=== PATIENT | female | born 1950 | race African-American/Black ===

== ENCOUNTER 2022-11-01 08:25 | Outpatient (CLI) | payer MEDICARE, SELFPAY ==
[2022-11-01 09:00] LABS: Basophils Absolute Auto 0.1 K/mm3 (0.0-0.1); Basophils Percent Auto 1.2 % (0.2-1.2); Eosinophils Absolute Auto 0.1 K/mm3 (0-0.3); Eosinophils Percent Auto 0.7 % (0-4.4); Hematocrit 40.9 % (37.0-47.0); Hemoglobin 13.1 g/dL (12.0-15.0); Immature Granulocyte Absolute 0.02 K/mm3 (0.00-0.031); Immature Granulocyte Percent A 0.2 % (0-0.5); Immature Platelet Fraction Pct 13.9 % (0.9-11.2); Lymphocytes Absolute Auto 2.06 K/mm3 (0.9-3.2); Mean Corpuscular Hemoglobin 28.3 pg (26-34); Mean Corpuscular Volume 88.3 fl (80-100); Mean Platelet Volume 12.9 fl (7.4-10.4); Monocytes Absolute Auto 0.6 K/mm3 (0.1-0.6); Monocytes Percent Auto 7.5 % (2.6-8.5); Neutrophils Absolute Auto 5.7 K/mm3 (1.3-6.7); Neutrophils Percent Auto 66.4 % (45.5-73.1); Platelet Count Result 178 k/mm3 (150-375); Red Blood Count 4.63 M/mm3 (4.2-5.4); Red Cell Distribution Width 14.3 % (11.5-14.5); White Blood Count 8.6 K/mm3 (4.5-10.0)
[2022-11-01 09:09] LABS: Alanine Aminotransferase 19 U/L (6-35); Albumin Level 4.3 g/dL (3.5-5.1); Alkaline Phosphatase 68 U/L (38-126); Anion Gap 6 mmol/L (8-16); Aspartate Amino Transferase 24 U/L (14-36); Bilirubin,Total 0.9 mg/dL (0.2-1.3); Blood Urea Nitrogen 18 mg/dL (7-17); Calcium 9.6 mg/dL (8.4-10.2); Carbon Dioxide 31 mmol/L (22-30); Chloride 102 mmol/L (98-107); Cholesterol 229 mg/dL (0-200); Estimated Glomerular Filt Rate 54; Glucose 100 mg/dL (65-110); HDL Direct 56 mg/dL; Potassium 3.9 mmol/L (3.4-5.0); Sodium 139 mmol/L (137-145); Triglycerides 87 mg/dL (<150)
[2022-11-01 09:20] LABS: LDL Cholesterol Direct 108 mg/dL
[2022-11-01 09:59] LABS: Vitamin B12 > 1000.0 pg/mL (239-931)
[2022-11-01 10:29] LABS: Vitamin D 25 Hydroxy 36.9 ng/mL
== END 2022-11-01 08:26 | disposition home or self-care (01) ==
PROVIDERS: PCP Family Medicine; Visit Provider Family Medicine
DX: Z00.00 Encounter for general adult medical examination without abnormal findings (principal); E78.5 Hyperlipidemia, unspecified; I10 Essential (primary) hypertension; Z79.899 Other long term (current) drug therapy; E53.8 Deficiency of other specified B group vitamins; E55.9 Vitamin D deficiency, unspecified
CPT/HCPCS: 36415; 80053; 80061; 82306; 82607; 84443; 85025; 85055

== ENCOUNTER 2022-12-26 00:55 | Day surgery (SDC) | payer MEDICARE, SELFPAY ==
[2022-12-17 10:24] VITALS: BMI 31.0
--- NOTE | 2022-12-24 10:43 | SUR.PREOP ---
Patient called regarding upcoming procedure. Reviewed preop instructions, appointment times, and procedure prep.
[2022-12-26 13:18] VITALS: BP 151/84; PULSE 91; RESP 18; TEMP 36.4; O2SAT 99
[2022-12-26] MEDS: LACTATED RINGERS 1,000 ML 150 ML IV CONT (13:26)
--- NOTE | 2022-12-26 13:52 | P.PNAN_ITS ---
Anes - Initial Pre Proc Eval Procedure: Operation Date: 12/26/22 14:30 Proposed Procedures p Screening Colonoscopy - Eusebio Kepm MD Date/Time: 12/26/22 13:52 Surgeon: Eusebio Kemp MD Pre Op Diagnosis: neoplasm screening Patient Data Age: 72 Gender: F Height: 1.63 m Weight: 75.8 kg Last Vital Signs Temp 97.6 F 12/26/22 13:18 Pulse 91 12/26/22 13:18 Resp 18 12/26/22 13:18 BP 151/84 H 12/26/22 13:18 Pulse Ox 99 12/26/22 13:18 O2 Del Method Room Air 12/26/22 13:18 Allergies Allergy/AdvReac Type Severity Reaction Status Date / Time codeine Allergy Mild Nausea and Verified 12/26/22 13:15 Vomiting Home Medications Medication Instructions Recorded Confirmed Type diltiazem HCl 240 mg 240 mg PO DAILY #90 caps 10/28/22 12/17/22 Rx capsule,extended release 24 hr lisinopril 20 1 tablet PO DAILY #90 tabs 10/28/22 12/17/22 Rx mg-hydrochlorothiazide 12.5 mg tablet Patient hx anesthesia problems: none Family hx anesthesia problems: none Results Review: All pre-operative results and documents have been reviewed as part of the pre- operative evaluation. [facility] Past Medical History Medical History Essential (primary) hypertension Family History Family History Father Hypertension Mother Hypertension Sibling Hypertension Social History Social History Smoking status: Never smoker Alcohol intake: never Substance use: never Substance use type: does not use Living arrangements: alone Occupation/Education: retired Gender identity (if verbalized by the patient): Female Spiritual care concerns: No Agree to blood products: Yes Anes - Eval Final PreProcedure Day of Procedure 12/26/22 13:52 Patient weight: normal Heart: regular rate and rhythm Lungs: clear to auscultation Airway: Mallampati scale class II Neurological: alert and oriented Last oral intake: >/= 8 hours ASA classification: II Emergent: no Anesthetic plan: proceed Anesthesia type and monitoring: general GIVS and standard monitoring Results Review: All pre-operative results and documents have been reviewed as part of the pre- operative evaluation. Informed Consent: The patient's anesthetic plan and its attendant risks and benefits were discussed with the patient/family/POA. Questions were solicited and answers provided to the satisfaction of the patient/family/POA.
--- NOTE | 2022-12-26 13:55 | PM.HPGS ---
History of Present Illness History of Present Illness Consent: Risks, benefits, and alternatives have been discussed and questions answered. Patient agrees to proceed with procedure. Chief complaint: neoplasm screening Narrative: Jenny Rubio is a 72 year old female here for screening colonoscopy, last one 10 years ago Review of Systems Constitutional: Constitutional: Denies headache(s) and Denies weakness Eyes: Eyes: Denies blurry vision ENT: Reports Normal hearing present, Denies headache(s) and Denies neck pain Cardiovascular: Cardiovascular: Denies chest pain and Denies dyspnea Respiratory: Respiratory: Denies dyspnea Gastrointestinal: Gastrointestinal: Reports no additional gastrointestinal complaints Genitourinary: Genitourinary: Denies dysuria Musculoskeletal: Musculoskeletal: Denies neck pain Integumentary/Breasts: Skin/Breast: Denies dry skin Neurologic: Reports Normal hearing present, Denies headache(s) and Denies weakness Psychiatric: Psychiatric: Denies anxiety Endocrine: Endocrine: Denies change in body appearance Hematologic/Lymphatic: Hematologic/Lymphatic: Denies easy bleeding Allergic/Immunologic: Allergic/Immunologic: Denies urticaria PMFSH Past Medical History Medical History (Updated 12/26/22 @ 13:56 by Eusebio Kemp MD) Colon cancer screening Essential (primary) hypertension Family History Family History Father Hypertension Mother Hypertension Sibling Hypertension Social History Social History Smoking status: Never smoker Alcohol intake: never Substance use: never Substance use type: does not use Living arrangements: alone Occupation/Education: retired Gender identity (if verbalized by the patient): Female Spiritual care concerns: No Agree to blood products: Yes Meds Home Medications and Allergies Home Medications Medication Instructions Recorded Confirmed Type diltiazem HCl 240 mg 240 mg PO DAILY #90 caps 10/28/22 12/17/22 Rx capsule,extended release 24 hr lisinopril 20 1 tablet PO DAILY #90 tabs 10/28/22 12/17/22 Rx mg-hydrochlorothiazide 12.5 mg tablet Allergies Allergy/AdvReac Type Severity Reaction Status Date / Time codeine Allergy Mild Nausea and Verified 12/26/22 13:15 Vomiting Vital Signs Vital Signs - 24 hr 12/26/22 13:18 Temperature 97.6 F Pulse Rate 91 Respiratory Rate 18 Blood Pressure 151/84 H Pulse Oximetry 99 Oxygen Delivery Room Air Exam Const: General: comfortable and no acute distress HENMT: Face/Nose/Sinus: Normal nares present Eyes: General: appearance normal, both eyes and all related structures Neck: Neck: no JVD Resp: Auscultation: clear to auscultation bilaterally Cardio: Rate: regular rate Rhythm: regular rhythm GI: Inspection: non-distended GI Palp: Yes Soft to palpation Skin: General skin exam: normal color Neuro: General: gait normal Speech: normal speech Extrem: General: normal to inspection Psych: Mental Status: mental status grossly normal Assessment and Plan Assessment and plan (1) Colon cancer screening: Code(s): Z12.11 - Encounter for screening for malignant neoplasm of colon Status: Acute Assessment and Plan: colonoscopy
[2022-12-26 14:10] VITALS: BP 134/77; PULSE 82; RESP 18; O2SAT 100
[2022-12-26 14:20] VITALS: BP 148/84; PULSE 83; RESP 18; O2SAT 100
[2022-12-26 14:30] VITALS: BP 147/85; PULSE 78; RESP 18; O2SAT 97
== END 2022-12-26 14:56 | disposition home or self-care (01) ==
PROVIDERS: PCP Family Medicine; Visit Provider Internal Medicine Gastroenterology
PROC: 0DJD8ZZ Inspection of Lower Intestinal Tract, Via Natural or Artificial Opening Endoscopic (ICD-10-PCS; CPT 45378; principal; 2022-12-26 14:30)
DX: Z12.11 Encounter for screening for malignant neoplasm of colon (principal); K63.5 Polyp of colon; I10 Essential (primary) hypertension
CPT/HCPCS: 45380; 88305; J2704; J7120

== ENCOUNTER 2023-04-14 07:32 | Outpatient (CLI) | payer OTHER, SELFPAY ==
--- NOTE | ~2023-04-14 | DEXA_ITS ---
Bone Density Report Name: MARIBEL DICKERSON Age: 72 Sex: Female Ethnicity: White Date of : 1950 Indication: postmenopausal; screening for osteoporosis; height loss; Referring Provider: TRI CERNA Study: Bone densitometry was performed. Exam Date: April 14, 2023 Accession number: [id number] Bone Density: Region BMD T-score Z-score Classification AP Spine(L1-L4) 0.759 -2.6 -0.2 Osteoporosis Femoral Neck (Left) 0.557 -2.6 -0.6 Osteoporosis Total Hip (Left) 0.643 -2.5 -0.7 Osteoporosis Femoral Neck (Right) 0.546 -2.7 -0.7 Osteoporosis Total Hip (Right) 0.612 -2.7 -0.9 Osteoporosis Total Hip Mean 0.628 -2.6 -0.8 Osteoporosis World Health Organization criteria for BMD impression classify patients as: Normal (T-score at or above -1.0), Osteopenia (T-score between -1.0 and -2.5), or Osteoporosis (T-score at or below -2.5). 10-year Fracture Risk: FRAX not reported because: Some T-score for Spine Total or Hip Total or Femoral Neck at or below -2.5 Clinical Information Provided by Patient: Has used the following medications: Vitamin D Patient maximum height was 64 Menopause Age: 36 Does not regularly consume dairy products Drinks caffeinated beverages Onset of menses at age 9 Number of children 3 Impression: The patient has osteoporosis, based on the Right Total Hip T-score. Discussion: INCREASED RISK OF FRACTURE. BONE DENSITY IS UNDESIRABLY LOW AT ONE OR MORE SKELETAL SITES, CONSISTENT WITH POSTMENOPAUSAL OSTEOPOROSIS. This patient's lowest T-score meets the World Health Organization's (WHO) criteria for osteoporosis at one or more sites (T-score -2.5 or below). In untreated patients, the risk of osteoporotic fracture increases approximately two-fold for each 1.0 SD decrease in T-score. Low bone density is not the only risk factor for fracture; also consider factors such as patient's age, frailty or poor health, risk of falling, risk of injury, previous osteoporotic fracture, family history of osteoporosis, cigarette smoking, low body weight, etc. Not everyone with low bone mineral density has osteoporosis; osteomalacia and other metabolic bone disorders should also be considered. Patients who have osteoporosis should be evaluated for specific diseases and conditions (secondary causes) that may cause or contribute to bone loss. The [place] Association of Clinical Endocrinologists (AACE) and National Osteoporosis Foundation (NOF) recommend pharmacologic intervention for all postmenopausal women whose T-score is in this range. The patient should follow a healthful lifestyle (good nutrition with adequate calcium and vitamin D, and appropriate weight-bearing exercise). Follow-Up: Consider a repeat BMD and Vertebral Fracture Assessment (VFA) exam in 2 years or sooner if medically necessary
--- NOTE | ~2023-04-14 | MM_ITS ---
EXAMINATION: MM screening yenny BI w ted HISTORY: Screening mammogram TECHNIQUE: Craniocaudal and mediolateral oblique 3-D tomosynthesis images were obtained and synthetic 2-D images were generated. CAD analysis was submitted and interpreted. COMPARISON: No prior mammogram is available for comparison at this institution. BREAST PARENCHYMAL COMPOSITION: There are scattered areas of fibroglandular density. FINDINGS: There is no evidence of suspicious mass, calcification, or architectural distortion to sugg est malignancy in either breast. IMPRESSION: 1. No mammographic evidence of malignancy. 2. Recommend routine screening mammography in one year. BI-RADS Category 1: Negative Reviewed, dictated and finalized at location A. ND BALLER
== END 2023-04-14 07:33 | disposition home or self-care (01) ==
PROVIDERS: PCP Family Medicine; Visit Provider Family Medicine
DX: Z12.31 Encounter for screening mammogram for malignant neoplasm of breast (principal); M81.0 Age-related osteoporosis without current pathological fracture; Z78.0 Asymptomatic menopausal state
CPT/HCPCS: 77063; 77067; 77080

== ENCOUNTER 2023-05-14 15:18 | Outpatient (CLI) | payer MEDICARE, SELFPAY ==
[2023-05-14 18:45] LABS: Alanine Aminotransferase 14 U/L (6-35); Albumin Level 4.2 g/dL (3.5-5.1); Alkaline Phosphatase 65 U/L (38-126); Anion Gap 5 mmol/L (4-12); Aspartate Amino Transferase 28 U/L (14-36); Bilirubin,Total 0.5 mg/dL (0.2-1.3); Blood Urea Nitrogen 26 mg/dL (7-17); Calcium 9.8 mg/dL (8.4-10.2); Carbon Dioxide 30 mmol/L (22-30); Chloride 105 mmol/L (98-107); Estimated Glomerular Filt Rate 54; Glucose 99 mg/dL (65-110); Potassium 3.5 mmol/L (3.4-5.0); Sodium 140 mmol/L (137-145)
== END 2023-05-14 15:19 | disposition home or self-care (01) ==
LOC: ANHGOSHLAB 15:19
PROVIDERS: PCP Family Medicine; Visit Provider Family Medicine
DX: I10 Essential (primary) hypertension (principal); Z79.899 Other long term (current) drug therapy
CPT/HCPCS: 36415; 80053

== ENCOUNTER 2023-11-10 07:00 | Outpatient (CLI) | payer MEDICARE, SELFPAY ==
[2023-11-10 08:07] LABS: Basophils Absolute Auto 0.1 K/mm3 (0.0-0.1); Eosinophils Absolute Auto 0.1 K/mm3 (0-0.3); Hematocrit 39.8 % (37.0-47.0); Hemoglobin 12.8 g/dL (12.0-15.0); Immature Granulocyte Absolute 0.03 K/mm3 (0.00-0.031); Immature Granulocyte Percent A 0.3 % (0-0.5); Lymphocytes Absolute Auto 1.98 K/mm3 (0.9-3.2); Lymphocytes Percent Auto 21.9 % (18.3-44.2); Mean Corpuscular HGB Conc 32.2 g/dl (32-36); Mean Corpuscular Hemoglobin 28.8 pg (26-34); Mean Corpuscular Volume 89.4 fl (80-100); Mean Platelet Volume 12.9 fl (7.4-10.4); Monocytes Absolute Auto 0.6 K/mm3 (0.1-0.6); Monocytes Percent Auto 6.9 % (2.6-8.5); Neutrophils Absolute Auto 6.2 K/mm3 (1.3-6.7); Neutrophils Percent Auto 68.9 % (45.5-73.1); Platelet Count Result 165 k/mm3 (150-375); Red Blood Count 4.45 M/mm3 (4.2-5.4); Red Cell Distribution Width 14.6 % (11.5-14.5)
[2023-11-10 08:08] LABS: Anion Gap 7 mmol/L (4-12); Blood Urea Nitrogen 18 mg/dL (7-17); Carbon Dioxide 30 mmol/L (22-30); Chloride 103 mmol/L (98-107); Potassium 3.6 mmol/L (3.4-5.0); Sodium 140 mmol/L (137-145)
[2023-11-10 08:09] LABS: Alanine Aminotransferase 16 U/L (6-35); Albumin Level 4.1 g/dL (3.5-5.1); Alkaline Phosphatase 44 U/L (38-126); Aspartate Amino Transferase 25 U/L (14-36); Bilirubin,Total 0.8 mg/dL (0.2-1.3); Cholesterol 217 mg/dL (0-200); Estimated Glomerular Filt Rate > 60; Glucose 91 mg/dL (65-110); HDL Direct 79 mg/dL; Triglycerides 83 mg/dL (<150)
[2023-11-10 08:19] LABS: LDL Cholesterol Direct 89 mg/dL
[2023-11-10 08:26] LABS: Hemoglobin A1C 5.8 % (<5.7)
[2023-11-10 08:57] LABS: Vitamin B12 > 1000.0 pg/mL (239-931)
[2023-11-10 09:38] LABS: Vitamin D 25 Hydroxy 36.7 ng/mL
== END 2023-11-10 07:01 | disposition home or self-care (01) ==
PROVIDERS: PCP Family Medicine; Visit Provider Family Medicine
DX: I10 Essential (primary) hypertension (principal); R73.9 Hyperglycemia, unspecified; E78.5 Hyperlipidemia, unspecified; E53.8 Deficiency of other specified B group vitamins; E55.9 Vitamin D deficiency, unspecified
CPT/HCPCS: 36415; 80053; 80061; 82306; 82607; 83036; 84443; 85025

== ENCOUNTER 2024-04-27 09:14 | Outpatient (CLI) | payer MEDICARE, SELFPAY ==
--- NOTE | ~2024-04-27 | MM_ITS ---
EXAMINATION: MM screening yenny BI w ted HISTORY: Screening TECHNIQUE: Craniocaudal and mediolateral oblique 3-D tomosynthesis images were obtained and synthetic 2-D images were generated. CAD analysis was submitted and interpreted. COMPARISON: 04/14/2023 BREAST PARENCHYMAL COMPOSITION: Dense: The breasts are heterogeneously dense, which may obscure small masses FINDINGS: There is no evidence of suspicious mass, calcification, or architectural distortion to sugg est malignancy in either breast. There has been no suspicious interval change. IMPRESSION: 1. No mammographic evidence of malignancy. 2. Recommend routine screening mammography in one year. BI-RADS Category 1: Negative Reviewed, dictated and finalized at location B.
--- OUTSIDE RECORDS SUMMARY | 2024-04-27 10:12 | XMS_ITS | Clinical Summary ---
Author Organization [facility] Address [address] [place] [address] Care Team Providers Care Audio Visual Production Specialist Name Role Phone Chad Castaneda MD Primary Care Provider Source Comments [facility],non-owned Affiliates and Associated Physician Practices is amultiple site organization consisting of ambulatory clinics and hospital sitesin [place], [place], [place] and [place]. This disclosure is being madepursuant to the Care Everywhere program and may not contain all information available regarding this patient. Last updated 17.[facility] Allergies Active Allergy Reactions Criticality Noted Date Comments Codeine Nausea and/or Vomiting 08/21/2011 Medications * Be aware that medications may not be up to date on this document. Alwaysverify current medications with the patient. Medication Sig Dispensed Refills Start Date End Date Status ibuprofen (MOTRIN) 600 MG tabletIndications:Rib pain Take 1 Tab by mouth 2 times daily with morning and evening meal. 30 Tab 0 03/15/2012 Active lisinopril (PRINIVIL; ZESTRIL) 20 MG tablet TAKE 1 TABLET BY MOUTH DAILY 30 Tab 0 05/30/2014 Active vitamin D, cholecalciferol, 1000 UNITS tablet Take 1,000 Units by mouth once daily Active methocarbamol (ROBAXIN) 750 MG tablet Take 1 Tab by mouth every 6 hours 20 Tab 0 11/13/2014 Active traMADol (ULTRAM) 50 MG tablet Take 1 Tab by mouth every 4 hours as needed for Pain 20 Tab 0 11/13/2014 Active CARTIA XT 240 MG capsule TAKE ONE CAPSULE BY MOUTH DAILY 30 Cap 11 01/17/2015 Active Active Problems Problem Noted Date Diagnosed Date Preoperative examination 08/21/2011 Hyperlipidemia 12/04/2010 Vitamin D deficiency 12/04/2010 High blood pressure 11/19/2009 Immunizations Name Administration Dates Next Due INFLUENZA VACCINE, TRIV. (AF LURIA, FLUZONE TRIVALENT; 6MO+) (IIV3) 11/28/2009(Deferred: Patient Refused) Social History Tobacco Use Types Packs/Day Years Used Date Smoking Tobacco: Never Smokeless Tobacco: Never Alcohol Use Standard Drinks/Week Comments No 0 (1 standard drink = 0.6 oz pur e alcohol) Sex and Gender Information Value Date Recorded Sex Assigned at Not on file Gender Identity Not on file Sexual Orientation Not on file Last Filed Vital Signs Vital Sign Reading Time Taken Comments Blood Pressure 145/78 11/13/2014 8:29 AM CDT Pulse 68 11/13/2014 8:29 AM CDT Temperature 36.8 C (98.2 F) 11/13/2014 8:29 AM CDT Respiratory Rate 14 11/13/2014 8:29 AM CDT Oxygen Saturation 98% 11/13/2014 8:29 AM CDT Inhaled Oxygen Concentration - - Weight 81.6 kg (180 lb) 11/13/2014 6:08 AM CDT Height 162.6 cm (5' 4 ) 03/15/2012 1:59 PM STRATEGIC CLIENT EXECUTIVE Body Mass Index 30.9 03/15/2012 1:59 PM STRATEGIC CLIENT EXECUTIVE Plan of Treatment Health Maintenance Due Date Last Done Comments BONE DENSITY TESTING 1950 COLOGUARD (AGES 45-75) - COLON CA SCREENING 1950 CT COLONOGRAPHY - COLON CA SCREENING 1950 FIT - COLON CA SCREENING 1950 FLEX SIG - COLON CA SCREENING 1950 HEPATITIS C SCREENING 09/04/1966 DTAP/TDAP/TD VACCINES (1 - Tdap) 09/09/1967 PNEUMOCOCCAL VACCINE 50+ (1 of 1 - PCV) 1998 ZOSTER VACCINE (1 of 2) 1998 MAMMOGRAM 05/06/2014 05/06/2012, 02/11, 02/05/2011, Additional history exists LIPID TESTING 07/13/2016 07/14/2011, 11/10, 08/22/2010, Additional history exists COLON MONITORING 09/16/2020 09/16/2010 COLONOSCOPY - COLON CA SCREENING 09/16/2020 09/16/2010, 09/16/2010 Colorectal Cancer Screening 09/16/2020 Respiratory Syncytial Virus (RSV) Vaccine Pt: or over 60 yrs (1 - 1-dose 75+ series) 09/09/2023 COVID-19 VACCINE (2023- season) 2023 INFLUENZA VACCINE (#1) 2023 DEPRESSION SCREENING 02/10/2024 MEDICARE AWV CALENDAR YEAR 2024 HEPATITIS B VACCINE Aged Out No longe r eligible based on patient's age to complete this topic HIB VACCINE Aged Out No longer eligi ble based on patient's age to complete this topic HPV VACCINE Aged Out No longer eligi ble based on patient's age to complete this topic MENINGOCOCCAL (Group B) VACCINE SHARED DECISION-MAKING Aged Out No longer eligible based on patient's age to complete this topic MENINGOCOCCAL GROUPS A/C/Y/W VACCINE Aged Out No longer eligible based on patient's age to complete this topic Procedures Procedure Name Priority Date/Time Associated Diagnosis Comments MAMMOGRAPHY ORDER Routine 05/06/2012 LIPID PROFILE W LDL/HDL RATIO Routine 07/14/2011 4:12 PM CDT Hyperlipidemia ENDOSCOPY, COLON, SCREENING Routine 09/16/2010 from Last 3 Months or Most Recently Relevant to Health Maintenance Results * MAMMOGRAPHY ORDER (05/06/2012) Anatomical Region Laterality Modality Other Chad Castaneda MD MAMMO ORDERABLES * (ABNORMAL) LIPID PROFILE W LDL/HDL (PO REF LAB) (07/14/2011 4:12 PM CDT) Cholesterol 210(H) 100 - 199 mg/dL [facility] ACCOUNT BILL Triglycerides 134 0 - 149 mg/dL [facility] ACCOUNT BILL HDL Cholesterol 57 >39 mg/dL [facility] ACCOUNT BILL Comment: According to ATP-III Guidelines, HDL-C >59 mg/dL is considered a negative risk factor for CHD. VLDL Calculated 27 5 - 40 mg/dL [facility] ACCOUNT BILL LDL Calculated 126(H) 0 - 99 mg/dL [facility] ACCOUNT BILL LDL/HDL Ratio 2.2 0.0 - 3.2 ratio units [facility] ACCOUNT BILL BLOOD SPECIMEN / Unknown 07/14/2011 4:12 PM CDT 07/15/2011 3:10 AM CDT Narrative Resulting Agency Comment [facility] [address] [id number] Chad Castaneda MD LAB - CHEMISTRY ORD ERABLES [facility] ACCOUNT BILL * ENDOSCOPY, COLON, SCREENING (09/16/2010) Chad Castaneda MD GI PROCEDURE ORDERA BLES from Last 3 Months or Most Recently Relevant to Health Maintenance Care Teams Audio Visual Production Specialist Relationship Specialty Start Date End Date Chad Castaneda MD [address] [place] [address] [facility] - General 08/07/11
== END 2024-04-27 09:15 | disposition home or self-care (01) ==
LOC: ANHIMG 09:17
PROVIDERS: PCP Family Medicine; Visit Provider Family Medicine
DX: Z12.31 Encounter for screening mammogram for malignant neoplasm of breast (principal)
CPT/HCPCS: 77063; 77067

== ENCOUNTER 2024-05-09 11:20 | Outpatient (CLI) | payer MEDICARE, SELFPAY ==
--- OUTSIDE RECORDS SUMMARY | 2024-05-09 12:52 | XMS_ITS | Clinical Summary ---
Author Organization [facility] Address [address] [place] [address] Care Team Providers Care International Sales Manager Name Role Phone Chad Castaneda MD Primary Care Provider Source Comments [facility],non-owned Affiliates and Associated Physician Practices is amultiple site organization consisting of ambulatory clinics and hospital sitesin [place], [place], [place] and [place]. This disclosure is being madepursuant to the Care Everywhere program and may not contain all information available regarding this patient. Last updated 17.[facility] Allergies Active Allergy Reactions Criticality Noted Date [...] cm (5' 4 ) 03/15/2012 1:59 PM AIRCRAFT SALES REPRESENTATIVE Body Mass Index 30.9 03/15/2012 1:59 PM AIRCRAFT SALES REPRESENTATIVE Plan of Treatment Health Maintenance Due Date [...] AM CDT Narrative Resulting Agency Comment [facility] [address] [id number] Chad Castaneda MD LAB - CHEMISTRY ORD ERABLES [facility] ACCOUNT BILL * ENDOSCOPY, COLON, SCREENING (09/16/2010) Chad Castaneda MD GI PROCEDURE ORDERA BLES from Last 3 Months or Most Recently Relevant to Health Maintenance Care Teams International Sales Manager Relationship Specialty Start Date End Date Chad Castaneda MD [address] [place] [address] [facility] - General 08/07/11
[2024-05-09 14:04] LABS: Alanine Aminotransferase 18 U/L (6-35); Albumin Level 4.2 g/dL (3.5-5.1); Alkaline Phosphatase 46 U/L (38-126); Anion Gap 8 mmol/L (4-12); Aspartate Amino Transferase 34 U/L (14-36); Bilirubin,Total 0.4 mg/dL (0.2-1.3); Blood Urea Nitrogen 21 mg/dL (7-17); Calcium 9.2 mg/dL (8.4-10.2); Carbon Dioxide 29 mmol/L (22-30); Chloride 104 mmol/L (98-107); Estimated Glomerular Filt Rate 58; Glucose 88 mg/dL (65-110); Potassium 3.6 mmol/L (3.4-5.0); Sodium 141 mmol/L (137-145)
[2024-05-09 14:53] LABS: Hemoglobin A1C 5.7 % (<5.7)
== END 2024-05-09 11:21 | disposition home or self-care (01) ==
LOC: ANHGOSHLAB 11:21
PROVIDERS: PCP Family Medicine; Visit Provider Family Medicine
DX: R73.03 Prediabetes (principal); I10 Essential (primary) hypertension
CPT/HCPCS: 36415; 80053; 83036

== ENCOUNTER 2024-11-16 08:53 | Outpatient (CLI) | payer MEDICARE, SELFPAY ==
[2024-11-16 09:13] LABS: Hematocrit 43.4 % (37.0-47.0); Hemoglobin 14.0 g/dL (12.0-15.0); Immature Granulocyte Percent A 0.3 % (0-0.5); Lymphocytes Absolute Auto 1.49 K/mm3 (0.9-3.2); Mean Corpuscular HGB Conc 32.3 g/dl (32-36); Mean Corpuscular Hemoglobin 28.1 pg (26-34); Mean Corpuscular Volume 87.0 fl (80-100); Nucleated Red Blood Cells Absolute Auto 0.000 K/mm3 (0.0-0.012); Nucleated Red Blood Cells Perc 0.0 % (0.0-0.2); Platelet Count Result 181 k/mm3 (150-375); Red Blood Count 4.99 M/mm3 (4.2-5.4); White Blood Count 9.9 K/mm3 (4.5-10.0)
[2024-11-16 09:25] LABS: Hemoglobin A1C 5.8 % (<5.7)
[2024-11-16 10:27] LABS: Alanine Aminotransferase 17 U/L (6-35); Albumin Level 4.2 g/dL (3.5-5.1); Alkaline Phosphatase 59 U/L (38-126); Anion Gap 6 mmol/L (4-12); Aspartate Amino Transferase 38 U/L (14-36); Bilirubin,Total 0.9 mg/dL (0.2-1.3); Blood Urea Nitrogen 23 mg/dL (7-17); Calcium 9.6 mg/dL (8.4-10.2); Carbon Dioxide 29 mmol/L (22-30); Chloride 102 mmol/L (98-107); Cholesterol 250 mg/dL (0-200); Estimated Glomerular Filt Rate 47; Glucose 93 mg/dL (65-110); HDL Direct 82 mg/dL; Potassium 3.6 mmol/L (3.4-5.0); Sodium 137 mmol/L (137-145); Total Protein 8.0 g/dL (6.3-8.2); Triglycerides 92 mg/dL (<150)
[2024-11-16 10:45] LABS: Thyroid Stimulating Hormone Reflex 2.930 uIU/mL (0.465-4.68)
[2024-11-16 11:31] LABS: Vitamin B12 > 1000.0 pg/mL (239-931)
== END 2024-11-16 08:54 | disposition home or self-care (01) ==
LOC: ANHLAB 08:55
PROVIDERS: PCP Family Medicine; Visit Provider Family Medicine
DX: E78.5 Hyperlipidemia, unspecified (principal); R73.03 Prediabetes; I10 Essential (primary) hypertension; E55.9 Vitamin D deficiency, unspecified; E53.8 Deficiency of other specified B group vitamins; Z00.00 Encounter for general adult medical examination without abnormal findings
CPT/HCPCS: 36415; 80053; 80061; 82306; 82607; 83036; 84443; 85025

== ENCOUNTER 2024-12-16 07:51 | Outpatient (CLI) | payer MEDICARE, SELFPAY ==
--- OUTSIDE RECORDS SUMMARY | 2024-12-16 07:57 | XMS_ITS | Clinical Summary ---
Author Organization [facility] Address [address] [place] [address] Care Team Providers Care Lockstitch Coat Joiner Name Role Phone Chad Castaneda MD Primary Care Provider Source Comments [facility],non-owned Affiliates and Associated Physician Practices is amultiple site organization consisting of ambulatory clinics and hospital sitesin [place], [place], [place] and [place]. This disclosure is being madepursuant to the Care Everywhere program and may not contain all information available regarding this patient. Last updated 17.[facility] Allergies Active Allergy Reactions Criticality Noted Date Comments Codeine Nausea and/or Vomiting 08/21/2011 Medications * Be aware that medications may not be up to date on this document. Alwaysverify current medications with the patient. ibuprofen (MOTRIN) 600 MG tabletIndicatio ns:Rib pain Take 1 Tab by mouth 2 times daily with morning and evening meal. 30 Tab 0 03/15/2012 Active lisinopril (PRINIVIL; ZESTRIL) 20 MG tablet TAKE 1 TABLET BY MOUTH DAILY 30 Tab 0 05/30/2014 Active vitamin D, cholecalciferol , 1000 UNITS tablet Take 1,000 Units by [...] deficiency 12/04/2010 High blood pressure 11/19/2009 Immunizations Immunization Administration Dates Next Due INFLUENZA VACCINE, TRIV. (AF LURIA, FLUZONE TRIVALENT; 6MO+) (IIV3) 11/28/2009(Deferred: Patient Refused) Social History Tobacco Use Types Packs/Day Years Used Date Smoking Tobacco: Never Smokeless Tobacco: Never Alcohol Use Standard Drinks/Week Comments No 0 (1 standard drink = 0.6 oz pur e alcohol) Comments No Sex and Gender Information Value Date Recorded Sex Assigned at Not on file Legal Sex Female 4:26 AM GEAR INSPECTOR Gender Identity Not on file Sexual Orientation [...] 6:08 AM CDT Height 162.6 cm (5' 4) 03/15/2012 1:59 PM GEAR INSPECTOR Body Mass Index 30.9 03/15/2012 1:59 PM GEAR INSPECTOR Plan of Treatment Health Maintenance Due Date Last Done Comments BONE DENSITY TESTING 1950 HEPATITIS C SCREENING 09/04/1966 DTAP/TDAP/TD VACCINES (1 - Tdap) 09/09/1967 PNEUMOCOCCAL VACCINE 50+ (1 of 1 - PCV) 1998 ZOSTER VACCINE (1 of 2) 1998 Respiratory Syncytial Virus (RSV) Vaccine Pt: or over 60 yrs (1 - 1-dose 75+ series) 09/09/2023 DEPRESSION SCREENING 02/10/2024 MEDICARE AWV CALENDAR YEAR 2024 COVID-19 VACCINE (1 - 2023-2 5 season) 2024 INFLUENZA VACCINE (#1) 2024 HEPATITIS B VACCINE Aged Out No longe r eligible based on patient's age to complete this topic HIB VACCINE Aged Out No longer eligi ble based on patient's age to complete this topic HPV VACCINE Aged Out No longer eligi ble based on patient's age to complete this topic MENINGOCOCCAL (Group B) VACC INE SHARED DECISION-MAKING Aged Out No longer eligibl e based on patient's age to complete this topic MENINGOCOCCAL GROUPS A/C/Y/W VACCINE Aged Out No longer eligible b ased on patient's age to complete this topic Insurance MEDICARE [facility] Address: [id number] [place] [address] [employer] MEDICARE ADV A[employer] MEDICARE ADV Care Teams Lockstitch Coat Joiner Relationship Specialty Start Date End Date Chad Castaneda MD [address] [place] [address] PCP - General 08/07/11
== END 2024-12-16 07:52 | disposition home or self-care (01) ==
LOC: ANHAUDASC 07:53
PROVIDERS: PCP Family Medicine; Visit Provider Otolaryngology Otolaryngology/Facial Plastic Surgery
DX: H90.3 Sensorineural hearing loss, bilateral (principal)
CPT/HCPCS: 92557; 92567